=== PATIENT | female | born 1965 | race Asian ===

== ENCOUNTER 2018-04-20 16:21 | Emergency (ER) | payer OTHER ==
--- NOTE | 2018-04-20 16:52 | ED ---
Back Pain - HPI Summary HPI Summary: Pt. is a 52 y.o female who presents to the ER for low back pain that started today. 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 Pt. denies leg pain, numbness, tingling, or weakness. Denies bowel or bladder incontinence or retention. Pt. denies fever, CP, SOB, Abd pain, urinary sxs. She has no past medical hx. No hx of back pain. Pain is worse with ambulation. Sxs are mild in severity. 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 Pt.'s daughter is also at bedside and speaks Cuban. 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, Laborer [employer] Pain Intensity: 9 - Allergies/Home Medications Allergies/Adverse Reactions: Allergies Allergy/AdvReac Type Severity Reaction Status Date / Time No Known Allergies Allergy Verified 05/21/15 17:37 PMH/Surg Hx/FS Hx/Imm Hx Previously Healthy: Yes Endocrine/Hematology History: Denies: Hx Diabetes Cardiovascular History: Reports: Hx Hypertension Denies: Hx Pacemaker/ICD Sensory History: Denies: Hx Hearing Aid Psychiatric History: Denies: Hx Panic Disorder Infectious Disease History: No Infectious Disease History: Denies: Traveled Outside the [place] in Last 30 Days - Family History Known Family History: Positive: Non-Contributory - Social History Occupation: Employed Full-time Lives: With Family Alcohol Use: None Substance Use Type: Reports: None Smoking Status (MU): Never Smoked Tobacco Review of Systems Constitutional: Negative Negative: Fever, Chills Cardiovascular: Negative Respiratory: Negative Gastrointestinal: Negative Negative: Abdominal Pain Genitourinary: Negative Positive: Other - Low back pain Skin: Negative Neurological: Negative All Other Systems Reviewed And Are Negative: Yes Physical Exam Triage Information Reviewed: Yes Vital Signs On Initial Exam: Initial Vitals Temp Pulse Resp BP Pulse Ox 98.2 F 74 16 158/84 100 04/20/18 16:24 04/20/18 16:24 04/20/18 16:24 04/20/18 16:24 04/20/18 16:24 Vital Signs Reviewed: Yes Appearance: Positive: Well-Nourished, Pain Distress - Pt. lying in bed flat, appears uncomfortable but nontoxic. Daughter present. Skin: Positive: Warm, Dry Head/Face: Positive: Normal Head/Face Inspection Eyes: Positive: Normal, EOMI Neck: Positive: Supple Abdomen Description: Positive: Nontender, Soft Musculoskeletal: Positive: Other - 5/5 strength in bilateral LEs with flexion and dorsiflexion. Very mild left straight leg test. No neuro sensory deficits to LEs. Pain on palpation to mid lumbar spine and paraspinal muscles. No CVA tenderness. Neurological: Positive: Normal, CN Intact II-III Psychiatric: Positive: Affect/Mood Appropriate Diagnostics - Vital Signs Vital Signs Temp Pulse Resp BP Pulse Ox 04/20/18 16:24 98.2 F 74 16 158/84 100 - Laboratory Lab Statement: Any lab studies that have been ordered have been reviewed, and results considered in the medical decision making process. Back Pain Course/Dx - Course Course Of Treatment: Pt. presenting with low back pain after lifting laundry basket. She is afebrile. She has no neurosensory deficits on exam or evidence of cauda equina syndrome. Pt. states she is in too much pain to ambulate. Pt. given toradol and valium. Xray shows degenerative changes without acute findings per radiology. Pt. lying in bed with heating pad. She was recently medicated. Pt. will be signed out to Shakeel Ramos PA-C pending how she feels after medication. If pt. feels better and can ambulate can dc home. If pt. still is unable to ambulate after medication would consider further imaging. But pt. has no leg weakness on exam suspect this is just secondary to pain. - Diagnoses Differential Diagnosis/HQI/PQRI: Positive: Arthritis, Epidural Abscess, Fracture , Herniated Disc, Renal Colic, Strain, Sprain Provider Diagnoses: Lumbar strain, Muscle spasm Discharge - Sign-Out/Discharge Documenting (check all that apply): Sign-Out Patient Signing out patient TO: Shakeel Ramos Patient Received Moderate/Deep Sedation with Procedure: No - Discharge Plan Referrals: Ivan Hughes MD [Primary Care Provider] -
[2018-04-20] MEDS ORDERED: Ketorolac INJ* 30 MG/ML 1 ML VIAL IM ONE (17:09)
[2018-04-20] MEDS ORDERED: Diazepam TAB(*) 5 MG PO ONE (17:09)
--- NOTE | 2018-04-20 18:43 | PN ---
Progress Note - Progress Note Date of Service: 04/20/18 Note: Patient signed out to me by Romie RICHARDS pending patient's ability to ambulate. History of back pain after bending over today. Patient states symptoms much improved with Valium and Toradol. Patient was able to ambulate with minor assistance, and is okay to go home. Patient will be discharged in stable condition with diagnosis of muscle spasm. Rx for naproxen and Flexeril. Patient understands and approves the plan.
[2018-04-20 18:56] VITALS: BP 132/87
== END 2018-04-20 18:55 | disposition home or self-care (01) ==
LOC: ED 16:21
DX: S39.012A Strain of muscle, fascia and tendon of lower back, initial encounter (principal); M62.838 Other muscle spasm; M54.5 Low back pain; X50.0XXA Overexertion from strenuous movement or load, initial encounter; Y92.9 Unspecified place or not applicable; I10 Essential (primary) hypertension
CPT/HCPCS: 72110; 96372; 99282; A9270-GY; J1885